=== PATIENT | male | born 1960 | race Caucasian/White ===

== ENCOUNTER → 2024-10-26 09:24 | Outpatient (CLI) | payer MEDICARE, OTHER, SELFPAY ==
--- NOTE | 2024-10-26 09:28 | DI.NM.S_ITS ---
PROCEDURE: NM KARRI PERF SPECT REST & STR Rest and exercise myocardial perfusion SPECT with gated imaging and ejection fraction RADIOPHARMACEUTICAL: 12.6 mCi Tc-99m sestamibi IV at rest and 27.5 mCi Tc-99m sestamibi IV at peak exercise. A 1 day-protocol was performed. INDICATIONS: Reuben Zimmerman PQRS ATTESTATIONS: Measure 322 - Is this imaging test primarily performed on a low-risk surgery patient for preoperative evaluation within 30 days preceding their low-risk non-cardiac surgery? Low-risk surgery is defined as cardiac or myocardial infarction less than 1%, including (but not limited to) endoscopic procedures, superficial procedures, cataract surgery, and excisional breast surgery: Answer: No Measure 323 - Is this imaging test performed primarily for the monitoring of an asymptomatic patient who had percutaneous coronary intervention on the visit date or within 2 years of the visit date? Answer: No Measure 324 - Is this imaging test performed primarily for the initial detection and risk assessment on an asymptomatic, low coronary heart disease patient? Low CHD risk definition = clinicians should consider the maximum number of available patient factors used to estimate risk based on [place] (ATP III criteria), typically age, gender, diabetes, smoking status, and use of blood pressure medication, and integrate age appropriate estimates for missing elements, such as LDL or standard blood pressure. Answer: No TECHNIQUE: Radiopharmaceutical was injected at peak stress test, and also at rest. SPECT images were obtained. SPECT myocardial perfusion images were displayed in short axis, horizontal long axis, and vertical long axis views. Gated images were reviewed using [employer] software. COMPARISON: None. CARDIAC STRESS: A standard Jose Armando treadmill exercise tolerance test was performed by the patient under the supervision of an attending staff. The patient exercised for 6 minutes and 50 seconds; functional aerobic impairment (HEATH) is +11%. Hemodynamic data: There is normal blood pressure and heart rate response to exercise stress. Patient achieved 134% of maximum predicted heart rate at peak exercise. Symptoms: Patient denied chest pain during exercise. EKG: Nondiagnostic exercise treadmill stress test for ischemia due to underlying atrial fibrillation and nonspecific ST changes. 3 beat nonsustained ventricular tachycardia noted at 10 seconds into recovery. No chest pains voiced. FINDINGS: Raw data: There is good myocardial labeling by radiotracer. No significant motion artifacts. Xzjz-uv-hwtte ratio is 0.28 (normal is less than 0.38 for sestamibi tracer, and less than 0.50 for thallium tracer). Left ventricle function: Gated images demonstrate normal left ventricle wall thickening. No segmental wall motion abnormality. No transient ischemic dilation; TID is 0.96 (normal less than 1.3). The left ventricle resting end-diastolic volume is 177 mL. Left ventricle stress ejection fraction is 38; normal values are above 45%. Myocardial perfusion: There was moderate hypoperfusion in the basal inferior segment as well as severe hypoperfusion in the apical segment of the rest images. Stress images demonstrated the same perfusion defect in the apical segment but no basal inferior segment hypoperfusion present. Prone images demonstrated no perfusion defects. The perfusion defects noted in the rest and stress images are most likely due to attenuation. IMPRESSION: 1. Negative exercise myocardial perfusion scan for ischemia and infarction. Dictated by: Filipe Pena M.D. on 10/26/2024 at 16:44 Approved by: Filipe Pena M.D. on 10/26/2024 at 16:47
== END ==
PROVIDERS: Referring Provider Internal Medicine Cardiovascular Disease; Visit Provider Internal Medicine Cardiovascular Disease
DX: I48.21 Permanent atrial fibrillation (principal); I48.0 Paroxysmal atrial fibrillation
CPT/HCPCS: 78452; 93017; A9502